=== PATIENT | female | born 1990 | race Asian ===

== ENCOUNTER → 2016-06-26 | Day surgery (SDC) | payer BC ==
[~2016-06-26] VITALS: Ht 167.6 cm; Wt 61.2 kg
[2016-06-26] VITALS (8 sets, daily range): BP systolic 112–127; BP diastolic 63–76
[~2016-06-26] MED LIST: ADDERAL20 MG ORAL; LR 1000ml 1,000 ML IVLG SCH; LR 1000ml ONE; Meperidine 25mg/ml Inj IV PRN; Midazolam 2mg/2ml Inj ONE; NUVARING VAGIN1 EAC1 VG; Propofol 10mg/ml 20ml IV ONE; fentaNYL 100 mcg/2 mL IV ONE
--- NOTE | 2016-06-26 09:01 | Anethesia Preoperative Eval ---
Anesthesia Pre-op PMH/ROS General Date of Evaluation: Jun 26, 2016 Time of Evaluation: 08:42 Anesthesiologist: Christian ASA Score: ASA 2 Mallampati Score Class I : Soft palate, uvula, fauces, pillars visible Class II: Soft palate, uvula, fauces visible Class III: Soft palate, base of uvula visible Class IV: Only hard plate visible Mallampati Classification: Class II Surgeon: Pa Diagnosis: Abdominal pain Surgical Procedure: EGD Colonoscopy Anesthesia History: none Family History: no anesthesia problems Allergies: Coded Allergies: APPLE (Verified Allergy, Intermediate, 06/26/16) Facial and Throat Swelling Stock (Verified Allergy, Intermediate, 06/26/16) Facial and Throat swelling PEACH (Verified Allergy, Intermediate, 06/26/16) Facial and Throat swelling Plums (Verified Allergy, Intermediate, 06/26/16) Facial and Throat Swelling Past Medical History Cardiovascular: Denies: CAD, HTN, RI, arrhythmia, other, valve dz Pulmonary: Denies: COPD, LINO, asthma, other Gastrointestinal/Genitourinary: Reports: GERD, Denies: CRI, ESRD, other Neurologic/Psychiatric: Denies: CVA, TIA, dementia, depression/anxiety, other Endocrine: Denies: DM, hypothyroidism, other, steroids HEENT: Denies: [place] (L), [place] (R), cataract (L), cataract (R), glaucoma, other Hematology/Immune: Denies: DVT, anemia, bleeding disorder, other Musculoskeletal/Integumentary: Denies: DDD, DJD, OA, RA, edema, other PMH Narrative: as above PSxH Narrative: Breasts augmentation Anesthesia Pre-op Phys. Exam Physician Exam Last Vital Signs Date Time Temp Pulse Resp B/P Pulse Ox O2 Delivery O2 Flow Rate FiO2 06/26/16 07:50 98.1 76 20 116/76 100 Room Air Constitutional: NAD Neurologic: CN 2-12 intact Cardiovascular: RRR, no M/R/G Respiratory: CTA Gastrointestinal: S/NT/ND Airway Exam Mallampati Score: Class II MO: full Neck: flexible ROM: full Teeth: intact Dentures: no lower, no upper Anesthesia Pre-op A/P Labs Urine Test Test 06/26/16 07:30 Urine HCG, Qualitative Negative Risk Assessment & Plan Assessment: ASA 2 Plan: MAC Status Change Before Surgery: No Pre-Antibiotics Drug: None YANIV LLANES M.D. Jun 26, 2016 09:01
--- NOTE | 2016-06-26 09:28 | Immediate Post-Op Evaluation ---
Immediate Post-Op Evalulation Immediate Post-Op Evalulation Procedure: EGD Colonoscopy Date of Evaluation: Jun 26, 2016 Time of Evaluation: 09:27 IV Fluids: 600 Blood Products: none Estimated Blood Loss: none Urinary Output: none Blood Pressure Systolic: 116 Blood Pressure Diastolic: 76 Pulse Rate: 69 Respiratory Rate: 20 O2 Sat by Pulse Oximetry: 99 Temperature (Fahrenheit): 97.5 Pain Score (1-10): 1 Nausea: No Vomiting: No Complications none Patient Status: awake, patent, none Hydration Status: adequate YANIV LLANES M.D. Jun 26, 2016 09:28
--- NOTE | 2016-06-26 09:39 | Short Stay Surgery H&P ---
History of Present Illness History of Present Illness Chief Complaint see typed H&P HPI Janan Hensley is a 26 year old female who was admitted on for Blood In Stool Patient History Allergies: Coded Allergies: APPLE (Verified Allergy, Intermediate, 06/26/16) Facial and Throat Swelling Stock (Verified Allergy, Intermediate, 06/26/16) Facial and Throat swelling PEACH (Verified Allergy, Intermediate, 06/26/16) Facial and Throat swelling Plums (Verified Allergy, Intermediate, 06/26/16) Facial and Throat Swelling PAST MEDICAL HISTORY: Past Surgeries: Social History: Medication History Scheduled Dextroamphetamine/Amphetamine (Adderall 20 mg Tablet), 20 MG ORAL DAILY, ( Reported) Etonogestrel/Ethinyl Estradiol (Nuvaring Vaginal Ring), 1 EACH VG q3 weeks, ( Reported) Physical Exam Vital Signs Last Vital Signs Date Time Temp Pulse Resp B/P Pulse Ox O2 Delivery O2 Flow Rate FiO2 06/26/16 09:33 75 14 112/67 100 Room Air 06/26/16 09:23 97.8 3.0 Labs Laboratory Tests Test 06/26/16 07:30 Urine HCG, Qualitative Negative Plan Attestation Are the patient's medical conditions optimized for surgery? JUSTYNA LIU Jun 26, 2016 09:39
--- NOTE | 2016-06-26 09:39 | Pre-Procedure Note/Attestation ---
Pre-Procedure Note/Attestation Complete Prior to Procedure Planned Procedure: not applicable Procedure Narrative: egd/colon Indications for Procedure Pre-Operative Diagnosis: Heme (+) Attestation I attest that I discussed the nature of the procedure; its benefits; risks and complications; and alternatives (and the risks and benefits of such alternatives ), prior to the procedure, with the patient (or the patient's legal operations support representative). I attest that, if there was a reasonable possibility of needing a blood transfusion, the patient (or the patient's legal operations support representative) was given the [facility] standardized written summary, pursuant to the [employer] [place] Blood Safety Act ([place] Health and Safety Code # 1645, as amended). I attest that I re-evaluated the patient just prior to the surgery and that there has been no change in the patient's H&P, except as documented below: JUSTYNA LIU Jun 26, 2016 09:39
--- NOTE | 2016-06-26 09:40 | Endoscopy Procedure Note ---
Endoscopy Procedure Note Indication for Procedure: Heme (+) Procedures Performed: EGD, colonoscopy Operative Findings/Diagnosis: Bile reflux Specimen: yes Pt Tolerated Procedure Well: Yes Estimated Blood Loss: none Anesthesiologist: see report Anesthesia: MAC Implant(s) used?: No 50 yrs or older w/o bx or poly: Not Applicable 10yrs. F/U not recommended: Not Applicable If not recommended, why?: JUSTYNA LIU Jun 26, 2016 09:40
--- NOTE | 2016-06-26 09:41 | Brief Operative Note ---
Immediate Post Operative Note Operative Note Chief Complaint: Heme (+) Pre-op Diagnosis: Heme (+) Procedure: EGD/Colon Post-op Diagnosis: bile reflux Surgeon: jinny Anesthesiologist: see report Anesthesia: MAC Specimen: yes Complications: none Condition: stable Estimated Blood Loss: none Drains: none Implant(s) used?: No JUSTYNA LIU Jun 26, 2016 09:41
--- NOTE | 2016-06-26 10:06 | 48 Hour Post Anesthesia Eval ---
Post Anesthesia Evaluation Procedure: EGD Colonoscopy Date of Evaluation: Jun 26, 2016 Time of Evaluation: 10:05 Blood Pressure Systolic: 116 0: 72 Pulse Rate: 76 Respiratory Rate: 20 Temperature (Fahrenheit): 97.4 O2 Sat by Pulse Oximetry: 98 Airway: patent Nausea: No Vomiting: No Pain Intensity: 1 Hydration Status: adequate Cardiopulmonary Status: stable Mental Status/LOC: patient returned to baseline Follow-up Care/Observations: n/a Post-Anesthesia Complications: none Follow-up care needed: ready to discharge YANIV LLANES M.D. Jun 26, 2016 10:06
--- NOTE | 2016-07-02 22:38 | Procedure Note ---
DATE OF PROCEDURE: 06/26/2016 PROCEDURE: Upper gastroendoscopy with biopsy as well as colonoscopy with biopsy. SURGEON: Vivienne Farias M.D. ANESTHESIA: Please see the separate anesthesiologist notes for details. PRE-ENDOSCOPIC DIAGNOSIS: Heme positive stools. POST-ENDOSCOPIC DIAGNOSES: 1. Bile reflux into the stomach of unclear significance. 2. Status post random biopsy of the duodenum and the antrum. 3. Status post random biopsies of the right and left normal colon. 4. Normal terminal ileum. DESCRIPTION OF PROCEDURE: The procedure, its risks, indications, alternatives, and possible complications were explained to the patient and informed consent was obtained. The patient was then sedated in the left lateral decubitus position. A diagnostic upper endoscope was introduced through the oropharynx and advanced to the duodenum. The endoscope was then gradually withdrawn and mucosa was examined carefully. Examination of the upper gastric mucosa revealed some bile reflux into the stomach of unclear significance. Biopsies of the duodenum and the stomach were sent to pathology for review. The endoscope was removed. Rectal exam was done. The colonoscope was introduced into the rectum and advanced to the terminal ileum. The colonoscope was then gradually withdrawn and the mucosa was examined carefully. Examination of the terminal ileal mucosa and the colonic mucosa did not reveal any abnormalities. Biopsies of the right and left colon were sent to pathology for review. The colonoscope was removed, and the patient was sent to recovery in good condition. COMPLICATIONS: None. RECOMMENDATIONS: 1. Follow up biopsy results. 2. Outpatient followup. 3. Consider capsule endoscopy to complete evaluation of the GI tract given heme-positive stools history. Vivienne Farias M.D. DR: PEE JOB#: [id number] CC:
== END | disposition home or self-care (01) ==
LOC: GAS 07:18
DX: K92.1 Melena (principal); R14.0 Abdominal distension (gaseous); R19.7 Diarrhea, unspecified; K29.50 Unspecified chronic gastritis without bleeding; K21.9 Gastro-esophageal reflux disease without esophagitis; E55.9 Vitamin D deficiency, unspecified; F14.90 Cocaine use, unspecified, uncomplicated; Z80.0 Family history of malignant neoplasm of digestive organs; Z91.018 Allergy to other foods
CPT/HCPCS: 43239; 45380; 81025; J2250; J2704; J3010; J7120; 94003; 94150